=== PATIENT | male | born 1950 | race Caucasian/White ===

== ENCOUNTER 2022-11-23 03:00 | Emergency (ER) | payer MEDICARE, BC ==
[2022-11-23] MEDS: Lidocaine 2% with EPINEPHrine 1:100,000 20 ML MDV INJECT ONE (03:43)
[2022-11-23] MEDS ORDERED: Take Home: Cephalexin 500 MG Cap, 6 Cap Pack PO ONE (04:12)
[2022-11-23] MEDS: Diphtheria,Pertussis(Acell),Tetanus Vaccine 0.5 ML Syringe IM ONE (04:20)
[2022-11-23] MEDS: Bacitracin Oint 1 GM U/D Packet TOP ONE (04:21)
== END 2022-11-23 04:35 | disposition home or self-care (01) ==
LOC: LL.ED 03:00
DX: S01.511A Laceration without foreign body of lip, initial encounter (principal); I10 Essential (primary) hypertension; Z88.8 Allergy status to other drugs, medicaments and biological substances; Z79.899 Other long term (current) drug therapy; Z23 Encounter for immunization; W00.0XXA Fall on same level due to ice and snow, initial encounter
CPT/HCPCS: 12014; 90471; 90715; 99282-25; 99283; A9270-GY; J3490